=== PATIENT | male | born 1975 | race Asian ===

== ENCOUNTER → 2016-12-18 | Outpatient (CLI) | payer BC ==
--- NOTE | 2016-12-18 08:15 | DIAGNOSTIC IMAGING REPORT ---
SCROTAL ULTRASOUND CLINICAL HISTORY: Testicular pain. COMPARISON STUDY: None. TECHNIQUE: Grayscale and color and duplex Doppler sonography of the scrotum was performed. FINDINGS: The right testis measures 4.6 x 1.9 x 2.9 cm and the left measures 4.1 x 2 x 2.9 cm. Color flow within each testis is symmetric. There is no testicular mass. There is no evidence of epididymitis. There are bilateral varicoceles, left larger than right. IMPRESSION: 1. Normal sonographic appearance of the testes. No evidence of testicular torsion. 2. No evidence of epididymitis. 3. Small bilateral varicoceles. Electronically signed by: Mauro Calderon M.D. 12/18/2016 8:13 AM Dictated Date/Time: 12/18/2016 8:12 AM
== END | disposition home or self-care (01) ==
LOC: C.ULTR 07:39
PROVIDERS: ATTEND Internal Medicine
DX: N50.819 Testicular pain, unspecified (principal); I86.1 Scrotal varices